=== PATIENT | female | born 1970 | race Two or more races ===

== ENCOUNTER 2020-05-14 20:20 | Emergency (ER) | payer MEDICAID, OTHER ==
[~2020-05-14] VITALS: Ht 157.5 cm; Wt 63.5 kg
[~2020-05-14 20:20] MED LIST: CIPRO500 MG PO; IBUPROFEN600 MG ORAL
[2020-05-14 20:35] VITALS: BP 137/80
--- NOTE | 2020-05-14 20:35 | NUR ---
ED Nurse Note: walked in to ed c/o abd pain accompanied by fever of 102.1 at triage onset saturday. pt hx dm but ran out of metformin. pt O2 @ 88% on RA and was placed on 2L NC and now satting at 91%. Denies CP but presents with abd pain 03/03. pt placed on droplet precaution, otherwise vss, nad, aaox4, ambulatory, blood, covid collected and sent to lab but unable to provide urine at this time and will attempt at a later time. ermd at bedside, pt on bus monitor.
[2020-05-14] MEDS ORDERED: METFORMIN HCL500 M1 ORAL (20:40)
[2020-05-14] MEDS ORDERED: Morphine Sulfate 2mg/ml Inj(IV/IM USE ONLY) IVP ONE (20:45)
[2020-05-14] MEDS ORDERED: Acetaminophen 500mg (ES) tab ORAL ONE ×2 (20:45)
--- NOTE | 2020-05-14 20:45 | NUR ---
ED Nurse Note: xr at bedside
--- NOTE | 2020-05-14 21:15 | Emergency Room Report ---
History of Present Illness General Chief Complaint: Fever Source: Patient Present Illness HPI Patient presents with 8 days of illness. She is having worsening dyspnea with exertion, cough with productive of white phlegm and fevers and chills. She also is complaining about some left lower abdominal pain. She denies any nausea vomiting or diarrhea. She also denies dysuria. The patient is a diabetic and has been noncompliant with her medications because she has not been able to see her doctor recently. She does not take insulin. She has been having dry mouth and polyuria and polydipsia. The patient rates the pain in her abdomen as 7/10 and fairly constant. Her [place]mate [place] the [place]. Apparently he has been wearing a mask. No sore throat, chest pain, palpitations, shortness of breath, joint pain, rashes, depression, anxiety, visual changes, dizziness, headache. Allergies: Coded Allergies: NO KNOWN ALLERGIES (Unverified Allergy, Unknown, 05/25/15) COVID-19 Screening Contact w/high risk pt: No Experienced COVID-19 symptoms?: Yes COVID-19 Testing performed [employer]: No Patient History Past Medical History: see triage record, DM Social History: Denies: smoking, alcohol use, drug use Social History Narrative Unemployed but has roommate Reviewed Nursing Documentation: PMH: Agreed; PSxH: Agreed Nursing Documentation-PMH Past Medical History: No History, Except For Hx Diabetes: Yes Review of Systems All Other Systems: negative except mentioned in HPI Physical Exam Vital Signs Date Time Temp Pulse Resp B/P (MAP) Pulse Ox O2 Delivery O2 Flow Rate FiO2 05/14/20 20:34 102.0 103 22 133/81 (98) It is possible the initial pulse oximetry was 70% however because of acrylic nails triage nurse did not trust this. When the patient was in a treatment bed and it was measured at bedside and was 88%. Sp02 EP Interpretation: reviewed, abnormal - as interpreted by me General Appearance: alert, GCS 15 Head: normocephalic, atraumatic Eyes: bilateral eye normal inspection, bilateral eye PERRL, bilateral eye EOMI ENT: normal pharynx, dry mucus membranes Neck: full range of motion, supple Respiratory: no respiratory distress, crackles, rales - Bilaterally with slightly worse on right Cardiovascular #1: no edema, tachycardia Cardiovascular #2: 2+ radial (R) Gastrointestinal: normal bowel sounds, no guarding, no rebound, tenderness - Left lower quadrant Genitourinary: no CVA tenderness Musculoskeletal: normal inspection, normal range of motion, no calf tenderness Neurologic: alert, oriented x3, grossly normal Psychiatric: mood/affect normal Skin: no rash, warm/dry - Febrile Procedures Critical Care Time Critical Care Time Total Critical Care Time: 30 min bedside evaluation and treatment excludes procedures (EKG). Reason for critical care: Hypoxia, febrile illness, Covid pneumonia and abdominal pain, hypokalemia, hyperglycemia Possible complications: hypotension, hypertension, [place], shock, arrhythmias, metabolic acidosis, end organ damage, respiratory failure. Interventions: Tylenol, fluid bolus, Rocephin, azithromycin and dexamethasone. Repeat examinations, discussion with O physician Course: Patient presents with febrile illness, cough and dyspnea and hypoxia. Initial improvement on oxygen. Patient treated with Tylenol and fluid bolus. Covid positive and dexamethasone, Rocephin and azithromycin administered. Patient still intermittently hypoxemic. I tried it in the oxygen however abdominal pain is still present. Upwards with improved oxygen saturations. Discussion with O physician, roommate and patient. Repeat exam with improvement however there is still abdominal pain. Exam is nonsurgical at this time. Etiology unclear. Potassium administered Consultations: nursing staff, EMS, roommate, O physician Performed by: Dr. Bashir Tolerated well condition = serious Medical Decision Making Diagnostic Impression: Primary Impression: Pneumonia due to COVID-19 virus Additional Impressions: Abdominal pain Qualified Codes: R10.32 - Left lower quadrant pain Hyperglycemia Hypokalemia Hypoxia ER Course Patient presents with fever, cough, abdominal pain and hypoxia. Differential includes pneumonia, COVID-19, DKA, diverticulitis, urinary tract infection, renal stone, sepsis, pulmonary embolus amongst others. Patient happy hypoxemic. Evaluation with EKG, chest x-ray and labs. Patient treated with Tylenol and IV hydration. Accu-Chek indicated. Patient placed on a cardiac rn. Oxygen initiated. EKG without injury. Chest x-ray dense bilateral infiltrates. White count normal. Labs significant for elevated blood glucose, slight hyponatremia. Hypokalemia. D-dimer negative. Contact Dr. Gomes for transfer 2200 Dexamethasone Rocephin and azithromycin begun. Re-examine patient and discuss diagnosis. Still with abdominal pain, now 12/31. No referred pain or rebound. LLQ pain. Morphine 4 mg given (previously 2 mg were given). Also I increased O2 to 4 l/min as sat 89-90%. Better sats after. Patient without surgical abdomen at this time but may need CT of the abdomen to evaluate the left lower quadrant pain. Urinalysis not obtained. Potassium given for low potassium. Patient stable for transfer. Laboratory Tests Test 05/14/20 21:00 White Blood Count 9.0 K/UL (4.8-10.8) Red Blood Count 5.08 M/UL (4.20-5.40) Hemoglobin 14.8 G/DL (12.0-16.0) Hematocrit 43.8 % (37.0-47.0) Mean Corpuscular Volume 86 FL (80-99) Mean Corpuscular Hemoglobin 29.2 PG (27.0-31.0) Mean Corpuscular Hemoglobin Concent 33.9 G/DL (32.0-36.0) Red Cell Distribution Width 11.1 % (11.6-14.8) L Platelet Count 202 K/UL (150-450) Mean Platelet Volume 9.4 FL (6.5-10.1) Neutrophils (%) (Auto) 77.5 % (45.0-75.0) H Lymphocytes (%) (Auto) 14.8 % (20.0-45.0) L Monocytes (%) (Auto) 7.1 % (1.0-10.0) Eosinophils (%) (Auto) 0.0 % (0.0-3.0) Basophils (%) (Auto) 0.6 % (0.0-2.0) Prothrombin Time 11.0 SEC (9.30-11.50) Prothrombin Time INR 1.0 (0.9-1.1) Activated Partial Thromboplast Time 27 SEC (23-33) D-Dimer 0.37 mg/L FEU (0.00-0.49) Sodium Level 129 MMOL/L (136-145) L Potassium Level 3.1 MMOL/L (3.5-5.1) L Chloride Level 93 MMOL/L (98-107) L Carbon Dioxide Level 26 MMOL/L (21-32) Anion Gap 10 mmol/L (5-15) Blood Urea Nitrogen 14 mg/dL (7-18) Creatinine 0.8 MG/DL (0.55-1.30) Estimated Glomerular Filtration Rate > 60 mL/min (>60) Glucose Level 285 MG/DL (74-106) H Lactic Acid Level 1.60 mmol/L (0.4-2.0) Calcium Level 8.7 MG/DL (8.5-10.1) Magnesium Level 2.1 MG/DL (1.8-2.4) Ferritin 297 NG/ML (8-388) Total Bilirubin 0.6 MG/DL (0.2-1.0) Aspartate Amino Transferase (AST) 85 U/L (15-37) H Alanine Aminotransferase (ALT) 87 U/L (12-78) H Alkaline Phosphatase 78 U/L (46-116) Lactate Dehydrogenase 465 U/L (81-234) H Total Creatine Kinase 52 U/L (26-308) Troponin I 0.008 ng/mL (0.000-0.056) C-Reactive Protein, Quantitative 8.4 mg/dL (0.00-0.90) H Pro-B-Type Natriuretic Peptide 20 pg/mL (0-125) Total Protein 8.1 G/DL (6.4-8.2) Albumin 3.0 G/DL (3.4-5.0) L Globulin 5.1 g/dL Albumin/Globulin Ratio 0.6 (1.0-2.7) L Lipase 319 U/L (73-393) Microbiology Date/Time Source Procedure Growth Status 05/14/20 21:00 Nasopharynx SARS-CoV-2 RdRp Gene Assay - Final Complete EKG Diagnostic Results Rate: tachycardiac Rhythm: NSR ST Segments: no acute changes Rhythm Strip Diag. Results EP Interpretation: yes Rhythm: no PVC's, no ectopy, other - ST Chest X-Ray Diagnostic Results Chest X-Ray Diagnostic Results : Chest X-Ray Ordered: Yes # of Views/Limited/Complete: 1 View Indication: Shortness of Breath EP Interpretation: Yes Interpretation: no effusion, no pneumothorax, other - Bilateral infiltrates Impression: Other Electronically Signed by: Electronically signed by Jey Bashir MD Last Vital Signs Date Time Temp Pulse Resp B/P (MAP) Pulse Ox O2 Delivery O2 Flow Rate FiO2 05/14/20 23:35 99.8 05/14/20 23:30 89 22 105/59 92 Nasal Cannula 4.0 90 Status: improved Disposition: SHORT-TERM HOSP Condition: Serious Referrals: NON PHYSICIAN (PCP) Jey Bashir MD May 14, 2020 21:15
[2020-05-14 21:26] LABS: BASOPHILS % (AUTO) 0.6 % (0.0-2.0); HEMATOCRIT 43.8 % (37.0-47.0); HEMOGLOBIN 14.8 G/DL (12.0-16.0); LYMPHOCYTES % (AUTO) 14.8 % (20.0-45.0); MEAN CORPUSCULAR VOLUME 86 FL (80-99); MONOCYTES % (AUTO) 7.1 % (1.0-10.0); NEUTROPHILS % (AUTO) 77.5 % (45.0-75.0); PLATELET COUNT 202 K/UL (150-450); RED BLOOD COUNT 5.08 M/UL (4.20-5.40); RED CELL DISTRIBUTION WIDTH 11.1 % (11.6-14.8)
--- NOTE | 2020-05-14 21:27 | Diagnostic Imaging Report ---
EXAM: XR Chest, 1 View CLINICAL HISTORY: COUGH TECHNIQUE: Frontal view of the chest. COMPARISON: No previous study. FINDINGS: Lungs: Confluent patchy airspace disease which predominate at the mid lower lung zones worrisome for Covid-19 pneumonia. Pleural space: Unremarkable. No pneumothorax. Heart: Cardiomediastinal silhouette unremarkable. Mediastinum: See above. Bones/joints: The ribs and the thoracic spine are unremarkable. Other findings: Hypoaeration. IMPRESSION: 1. Findings worrisome for Covid-19 pneumonia. 2. Hypoaeration.
[2020-05-14 21:41] LABS: ANION GAP 10 mmol/L (5-15); BLOOD UREA NITROGEN 14 mg/dL (7-18); CALCIUM 8.7 MG/DL (8.5-10.1); CARBON DIOXIDE 26 MMOL/L (21-32); CHLORIDE 93 MMOL/L (98-107); CREATININE 0.8 MG/DL (0.55-1.30); POTASSIUM 3.1 MMOL/L (3.5-5.1); SODIUM 129 MMOL/L (136-145)
[2020-05-14 21:57] LABS: ALANINE AMINOTRANSFERASE 87 U/L (12-78); ALBUMIN/GLOBULIN RATIO 0.6 (1.0-2.7); ALKALINE PHOSPHATASE 78 U/L (46-116); ASPARTATE AMINO TRANSFERASE 85 U/L (15-37); BILIRUBIN,TOTAL 0.6 MG/DL (0.2-1.0); CREATINE KINASE 52 U/L (26-308); FERRITIN 297 NG/ML (8-388); LACTATE DEHYDROGENASE 465 U/L (81-234)
[2020-05-14] MEDS ORDERED: dexAMETHasone 10mg/ml Inj IV ONE (22:15)
[2020-05-14] MEDS ORDERED: Azithromycin 500 MG in NS 275 ML IVPB ONE (22:15)
[2020-05-14] MEDS ORDERED: cefTRIAXone 1 GM in NS 55 ML IV ONE (22:15)
[2020-05-14] MEDS ORDERED: Morphine Sulfate 4mg/ml Inj (IV USE ONLY) IVP ONE (23:00)
--- NOTE | 2020-05-14 23:20 | NUR ---
ED Nurse Note: gave report to Brina BHATIA at [facility]. Taylor stark
--- NOTE | 2020-05-14 23:20 | NUR ---
ED Nurse Note: gave report to Brina BHATIA at [facility]. Taylor at bedside
[2020-05-14 23:30] VITALS: BP 105/59
--- NOTE | 2020-05-15 20:36 | Cardiology Report ---
APPROVED REPORT EKG Measurement Heart [id number] <Conclusion> Sinus tachycardia Possible Left atrial enlargement Incomplete right bundle branch block Borderline ECG
== END 2020-05-14 23:30 | disposition short-term general hospital (02) ==
LOC: EMR 20:48
DX: U07.1 COVID-19 (principal); J12.89 Other viral pneumonia; E87.6 Hypokalemia; R09.02 Hypoxemia; R10.32 Left lower quadrant pain; E11.65 Type 2 diabetes mellitus with hyperglycemia
CPT/HCPCS: 36415; 71045; 80053; 82550; 82728; 83605; 83615; 83690; 83735; 83880; 84484; 85025; 85379; 85610; 85730; 86140; 87040; 93005; 96361; 96365; 96367; 96375; 96376; J0456; J0696; J2270; J2405; J7030; J7050; U0002; Z7502; 99291; J8499